=== PATIENT | female | born 1995 | race Two or more races ===

== ENCOUNTER 2019-08-16 09:26 | Emergency (ER) | payer OTHER ==
[2019-08-16 09:50] VITALS: TEMP 98.4; BMI 40.1
[2019-08-16] MEDS ORDERED: SODIUM CHLORIDE 1,000 ML IV STA (11:03)
[2019-08-16] MEDS ORDERED: ONDANSETRON 4 MG/2 ML VIAL IVPUSH ONE (11:11)
[2019-08-16] MEDS ORDERED: ACETAMINOPHEN 1000 MG/100 ML VIAL (NON FORMULARY) IVPB ONE (11:11)
[2019-08-16] MEDS ORDERED: FAMOTIDINE 20 MG/50 ML IVPB 20 MG/50 ML MG IVPB ONE ×2 (11:11→11:56)
--- NOTE | 2019-08-16 11:12 | PDOC ---
History of Present Illness - General Chief Complaint: Vomiting/Diarrhea Stated Complaint: ABD. PAIN/ VOMITING History Source: Patient Exam Limitations: No Limitations - History of Present Illness Initial Comments: 08/16/19 10:54 24 yo female no sig pmh presents to the ED for abdominal pain, nausea and diarrhea. Pt states over the last 2 days she has had severe diffuse abdominal pain, worse in the left lower quadrant, constant, described as sharp and stabbing with approx 30 episodes of loose stools without blood. Pt also admits to burning on urination that began this morning and a hx of UTIs with leakage. Pt states menstrual cycles are very infrequent and not regular, LMP september, pt never been sexually active. Denies vaginal bleeding, discharge, pain or burning. Pt denies fevers, CP, SOB, back pain, recent travel, sick contacts or anyone with similar symptoms, changes in diet. Of note, pt had abdominal surgery at 3 months of age for constipation, does not know further information regarding surgery. Past History - Past Medical History Allergies/Adverse Reactions: Allergies Allergy/AdvReac Type Severity Reaction Status Date / Time No Known Allergies Allergy Verified 08/16/19 11:13 COPD: No - Immunization History Immunization Up to Date: No - Psycho Social/Smoking Cessation Hx Smoking History: Never smoked Have you smoked in the past 12 months: No Information on smoking cessation initiated: No Hx Alcohol Use: No Drug/Substance Use Hx: No Review of Systems - Review of Systems Constitutional: Yes: See HPI HEENTM: Yes: See HPI Respiratory: Yes: See HPI Cardiac (ROS): Yes: See HPI ABD/GI: Yes: See HPI : Yes: See HPI Musculoskeletal: Yes: See HPI Integumentary: Yes: See HPI Neurological: Yes: See HPI *Physical Exam - Vital Signs Last Vital Signs Temp Pulse Resp BP Pulse Ox 98.4 F 87 18 118/69 100 08/16/19 09:47 08/16/19 09:47 08/16/19 09:47 08/16/19 09:47 08/16/19 09:47 - Physical Exam General Appearance: Yes: Nourished, Appropriately Dressed. No: Apparent Distress HEENT: positive: EOMI, Other (hirsutism) Neck: positive: Supple. negative: Carotid bruit Respiratory/Chest: positive: Lungs Clear, Normal Breath Sounds. negative: Respiratory Distress, Accessory Muscle Use, Rapid RR, Crackles, Rales, Rhonchi, Stridor, Wheezing Cardiovascular: positive: Regular Rhythm, Regular Rate, S1, S2. negative: Edema , JVD, Murmur Vascular Pulses: Dorsalis-Pedis (R): 4+, Doralis-Pedis (L): 4+ Female Pelvic Exam: positive: other (deffered) Gastrointestinal/Abdominal: positive: Flat, Soft, Tenderness (mild tnderness with palpation to bilateral lower quadrant), Other (neg murphys, neg rovsings ) . negative: Pulsatile Mass, Distended, Guarding, Rebound Musculoskeletal: negative: CVA Tenderness Extremity: positive: Normal Capillary Refill, Normal Inspection, Normal Range of Motion Integumentary: positive: Normal Color, Dry, Warm Neurologic: positive: Fully Oriented, Alert, Normal Mood/Affect ED Treatment Course - LABORATORY CBC & Chemistry Diagram: 08/16/19 12:05 08/16/19 12:05 Medical Decision Making - Medical Decision Making 08/16/19 11:29 24 yo female no sig pmh presents to the ED for abdominal pain, nausea and diarrhea. Pt states over the last 2 days she has had severe diffuse abdominal pain, worse in the left lower quadrant, constant, described as sharp and stabbing with approx 30 episodes of loose stools without blood. Pt also admits to burning on urination that began this morning and a hx of UTIs with leakage. Pt states menstrual cycles are very infrequent and not regular, LMP september, pt never been sexually active. Denies vaginal bleeding, discharge, pain or burning. Pt denies fevers, CP, SOB, back pain, recent travel, sick contacts or anyone with similar symptoms, changes in diet. Of note, pt had abdominal surgery at 3 months of age for constipation, does not know further information regarding surgery. vitals WNL 08/16/19 13:26 Multiple repeat abdominal exams neg, improvement after GI cocktail of fluids, pepcid and zofran Discussed not doing pelvic exam with pt since there is main component of diarrhea, unlikely to be torsion and preg neg. Pt never had vaginal sex or used a tampon and agrees pelvic exam at this time not warranted Labs WNL Pt safe for DC home with PCP follow up and strict return precautions Discharge - Discharge Information Problems reviewed: Yes Clinical Impression/Diagnosis: Abdominal pain Condition: Stable Disposition: HOME - Admission No - Follow up/Referral Referrals: Nichole Cortes MD [Primary Care Provider] - - Patient Discharge Instructions Patient Printed Discharge Instructions: DI for Abdominal Pain-Adult Additional Instructions: Please see your Primary DOctor within the next 48 hours. See your [facility] doctor within 1 week. Return to the ER for new or concerning symptoms. Thank you - Post Discharge Activity Work/Back to School Note: Back to Work, Back to School
[2019-08-16] MEDS ORDERED: ACETAMINOPHEN INJECTION 100 ML IVPB ONE (11:55)
[2019-08-16] MEDS ORDERED: ONDANSETRON 4 MG/2 ML VIAL ONE (11:56)
[2019-08-16 12:22] VITALS: BP 107/68; PULSE 79
[2019-08-16 12:28] LABS: BASO % 0.4 % (0-2.0); EOS % 0.2 % (0-4.5); HEMATOCRIT 41.5 % (32.4-45.2); LYMPH % 12.8 % (8-40); MCH 28.1 pg (25.7-33.7); MCHC 33.7 g/dl (32.0-36.0); MEAN CELL VOLUME 83.4 fl (80-96); MEAN PLT VOLUME 9.1 fl (7.5-11.1); MONO % 5.6 % (3.8-10.2); PLATELET COUNT 312 K/MM3 (134-434); RBC 4.98 M/mm3 (3.60-5.2); RDW 14.3 % (11.6-15.6); WHITE BLOOD COUNT 8.7 K/mm3 (4.0-10.0)
[2019-08-16 12:36] LABS: EPI CELLS 14.1 /HPF (0-5/HPF); HYALINE CASTS 12 /lpf (0-8); PH,URINE 5.5 (5.0-8.0); URINE APPEARANCE CLOUDY; URINE BACTERIA 27.9 /hpf (NEGATIVE); URINE BILIRUBIN NEGATIVE (NEGATIVE); URINE COLOR YELLOW; URINE GLUCOSE (UA) NEGATIVE (NEGATIVE); URINE KETONE TRACE (NEGATIVE); URINE LEUK ESTERASE NEGATIVE (NEGATIVE); URINE NITRITE NEGATIVE (NEGATIVE); URINE PROTEIN 1+ (NEGATIVE); URINE RBC 3 /hpf (0-4); URINE UROBILINOGEN 0.2 mg/dL (0.2-1.0); URINE WBC 4 /hpf (0-5)
[2019-08-16 12:53] LABS: ALBUMIN 4.1 g/dl (3.4-5.0); BILIRUBIN,TOTAL 0.4 mg/dL (0.2-1); BLOOD UREA NITROGEN 12.6 mg/dL (7-18); CALCIUM 9.9 mg/dL (8.5-10.1); CREATININE 0.8 mg/dL (0.55-1.3); POTASSIUM 3.7 mmol/L (3.5-5.1); TOT PROT 8.4 g/dl (6.4-8.2)
--- NOTE | 2019-08-16 13:24 | PDOC ---
Documentation entered by Clovis Montejo SCRIBE, acting as scribe for Fabian Chen MD. Fabian Chen MD: This documentation has been prepared by the Gustabo bill Xhesika, SCRIBE, under my direction and personally reviewed by me in its entirety. I confirm that the documentation accurately reflects all work, treatment, procedures, and medical decision making performed by me. Attending Attestation - Resident Resident Name: Glenn Vyas - ED Attending Attestation I have performed the following: I have examined & evaluated the patient, The case was reviewed & discussed with the resident, I agree w/resident's findings & plan, Exceptions are as noted - HPI HPI: 08/16/19 11:06 The patient is a 24 year old female, with no PMH of who presents to the ED for multiple episode of NBNB diarrhea x2 days. Pt reports associated chills, nausea , and diffuse abdominal pain. Abdominal pain is moderate intermittent comes and goes in waves had a brief episode of intense pain for which has since resolved crampy in nature The patient denies chest pain, shortness of breath, headache and dizziness. Denies fever, cough, nausea, and constipation. Denies dysuria, frequency, urgency and hematuria. Allergy: NKDA Social: Denies alcohol, cigarette or drug use. 08/16/19 13:24 - Physicial Exam PE: 08/16/19 13:09 Vitals: Triage Vital signs reviewed General Appearance: no acute distress, well nourished well developed, Neck: Supple;No Nuchal rigidity Chest Wall: Nontender Cardiac: Regular rate and rhythm, no murmurs, no rubs, no gallops, Lungs: Clear to auscultation bilateral, good air movement bilaterally, Abdomen: Soft, nondistended, normal bowel sounds, nontender to palpation Extremities: Full range of motion to all extremities, no cyanosis, clubbing, or edema Skin: Warm and dry, no rashes or lesions, no petechiae Neuro: AOX3; Cranial Nerves 2-12 grossly c intact, Strength intact to all extremities, Sensation intact to all extremities, gait normal Psych: normal mood, normal affect - Medical Decision Making 08/16/19 13:24 24 years old with no past medical history presents with 2-day history of diarrheal illness brief episode of abdominal comfort which is since resolved repeat abdominal examination is normal Labs within normal limits patient feels much better tolerating fluids by mouth will give a few days off from work she will rest hydrate she return to ED for any fever bloody stools severe returning abdominal pain or for any concerns. Findings, need for follow-up and strict return instruction discussed with patient.
== END 2019-08-16 13:34 | disposition home or self-care (01) ==
LOC: JER 09:26
PROC: 3E033GC Introduction of Other Therapeutic Substance into Peripheral Vein, Percutaneous Approach (ICD-10-PCS; principal; 2019-08-16)
PROC: 3E033NZ Introduction of Analgesics, Hypnotics, Sedatives into Peripheral Vein, Percutaneous Approach (ICD-10-PCS; 2019-08-16)
PROC: 3E033GC Introduction of Other Therapeutic Substance into Peripheral Vein, Percutaneous Approach (ICD-10-PCS; 2019-08-16)
DX: R10.9 Unspecified abdominal pain (principal); R11.0 Nausea; R19.7 Diarrhea, unspecified
CPT/HCPCS: 36415; 80053; 81003; 83690; 84703; 85025; 87086; 87186; 96365; 96375; 99284-25; J0131; J7030

== ENCOUNTER 2023-04-10 09:53 | Emergency (ER) | payer OTHER ==
[2023-04-10 10:08] VITALS: RESP 18; TEMP 98.3; BMI 29.2
[2023-04-10] MEDS ORDERED: ACETAMINOPHEN 1000 MG/100 ML BAG IVPB ONE (10:26)
[2023-04-10] MEDS ORDERED: ACETAMINOPHEN INJECTION 100 ML IVPB ONE (10:37)
[2023-04-10 10:59] LABS: HEMATOCRIT 37.9 % (32.4-45.2); HEMOGLOBIN 12.6 G/dL (10.7-15.3); INR 1.17 (0.83-1.09); MCH 28.3 pg (25.7-33.7); MCHC 33.1 g/dl (32.0-36.0); MEAN CELL VOLUME 85.5 fl (80-96); MEAN PLT VOLUME 9.1 fl (7.5-11.1); PLATELET COUNT 271.5 10^3/uL (134-434); PROTHROMBIN TIME (PATIENT) 13.6 SEC (9.7-13.0); RBC 4.43 10^6/uL (3.60-5.2); RDW 14.6 % (11.6-15.6); WHITE BLOOD COUNT 8.9 10^3/uL (4.0-10.8)
[2023-04-10 11:01] LABS: ACTIVATED PTT 34.6 SECONDS (25.2-36.5)
[2023-04-10 11:39] LABS: EPITHELIAL CELLS FEW /hpf
[2023-04-10 12:06] LABS: POTASSIUM 3.9 mmol/L (3.5-5.1)
[2023-04-10 12:09] LABS: ALBUMIN 3.8 g/dl (3.4-5.0); BLOOD UREA NITROGEN 13.7 mg/dL (7-18)
[2023-04-10 12:12] LABS: CREATININE 0.7 mg/dL (0.55-1.3)
[2023-04-10 12:14] LABS: BILIRUBIN,TOTAL 0.4 mg/dL (0.2-1); TOT PROT 7.4 g/dl (6.4-8.2)
[2023-04-10 13:09] LABS: PLATELET ESTIMATE ADEQUATE
[2023-04-10 13:40] VITALS: BP 129/78; PULSE 63
== END 2023-04-10 17:05 | disposition home or self-care (01) ==
LOC: FER 09:53
PROC: 3E033NZ Introduction of Analgesics, Hypnotics, Sedatives into Peripheral Vein, Percutaneous Approach (ICD-10-PCS; principal; 2023-04-10)
DX: R10.31 Right lower quadrant pain (principal); N83.202 Unspecified ovarian cyst, left side
CPT/HCPCS: 36415; 74177-TC; 76856-TC; 80053; 81003; 81015; 84703; 85027; 85610; 85730; 86850; 86900; 86901; 99285-25; Q9967